=== PATIENT | female | born 1975 | race African-American/Black ===

== ENCOUNTER 2017-08-15 07:15 | Emergency (ER) | payer OTHER, SELFPAY ==
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
== END 2017-08-15 10:19 | disposition home or self-care (01) ==
LOC: ERS 07:15
DX: M54.2 Cervicalgia (principal); M54.5 Low back pain; F17.210 Nicotine dependence, cigarettes, uncomplicated; Z71.6 Tobacco abuse counseling; V89.2XXA Person injured in unspecified motor-vehicle accident, traffic, initial encounter
CPT/HCPCS: 72100; 72125

== ENCOUNTER 2022-09-05 06:48 | Day surgery (SDC) | payer BC ==
[2022-08-31 14:49] VITALS: BMI 38.2
[2022-09-05] MEDS ORDERED: Sevoflurane 250 ML INH ANEST BOTTLE ONE (09:29)
[2022-09-05] MEDS ORDERED: Lidocaine 1% (PF) 30 ML VIAL ONE (09:36)
[2022-09-05] MEDS ORDERED: EPINEPHrine 1 MG/ML AMP ONE (09:37)
[2022-09-05] MEDS ORDERED: fentaNYL PF 100 MCG/2 ML SYRINGE ONE (09:39)
[2022-09-05] MEDS ORDERED: PROPOFOL 200 MG/20 ML VIAL ONE (09:54)
[2022-09-05] MEDS ORDERED: Dexamethasone 20 MG/5 ML VIAL ONE (09:54)
[2022-09-05] MEDS ORDERED: Ondansetron PF 4 MG/2 ML Vial ONE (09:54)
[2022-09-05] MEDS ORDERED: Lidocaine 1% PF 5 ML VIAL ONE (09:54)
[2022-09-05] MEDS ORDERED: fentaNYL 50 mcg/mL 1 mL Vial ONE ×3 (10:40→11:32)
[2022-09-05] MEDS ORDERED: Promethazine HCl 25 MG/ML VIAL ONE (11:58)
== END 2022-09-05 13:16 | disposition home or self-care (01) ==
LOC: SDC 06:48
PROVIDERS: ATTEND Otolaryngology Plastic Surgery within the Head & Neck
PROC: 0JB40ZZ Excision of Right Neck Subcutaneous Tissue and Fascia, Open Approach (ICD-10-PCS; principal; 2022-09-05)
DX: Q18.0 Sinus, fistula and cyst of branchial cleft (principal)
CPT/HCPCS: 88305; J0171; J1100; J2001; J2405; J2550; J2704; J3010

== ENCOUNTER 2022-10-18 09:02 | Outpatient (CLI) | payer BC | END 2022-10-18 09:03 | disposition home or self-care (01) | LOC: MRI 09:02 | PROVIDERS: ATTEND Nurse Anesthetist, Certified Registered | DX: M47.26 Other spondylosis with radiculopathy, lumbar region (principal) | CPT/HCPCS: 72148 ==